=== PATIENT | female | born 1970 | race Caucasian/White ===

== ENCOUNTER 2021-07-16 08:04 | Emergency (ER) | payer SELFPAY ==
[2021-07-16 09:20] LABS: #Eosinphils 0.1 10x3/uL (0.0-0.5); #Monocytes 0.5 10x3/uL (0.0-1.1); #Neutrophils 4.1 10x3/uL (1.5-8.4); %Basophils 0.7 % (0.0-2.0); %Eosinophils 0.9 % (0.0-6.0); %Lymphocytes 18.2 % (18.0-47.0); %Monocytes 9.1 % (0.0-10.0); %Neutrophils 70.8 % (40.0-75.0); Hemoglobin 15.5 g/dL (12.0-15.5); Mean Corpuscular Hemoglobin 32.2 pg (27.0-33.0); Mean Corpuscular Volume 94.8 fl (81.6-98.3); Mean Platelet Volume 9.4 fl (7.4-10.4); Platelet Count 265 10x3/uL (150-450); RBC Distribution Width 13.2 % (11.5-14.5); Red Blood Cell (RBC) Count 4.81 10x6/uL (3.90-5.03); White Blood Cell (WBC) Count 5.8 10x3/uL (3.5-10.5)
[2021-07-16 09:27] LABS: Bilirubin Neg (Negative); Blood, Urine Negative (Negative); Clarity Clear (Clear); Glucose, Urine (Dipstick) Normal (Negative); Ketone, Urine 15 mg/dL (Negative); Leukocyte Negative (Negative); Nitrite Negative (Negative); Protein, Urine (Dipstick) Negative (Neg-Trace); Specific Gravity, Urine 1.015 (1.002-1.036); Urobilinogen Normal mg/dL (Less than 2)
[2021-07-16] MEDS ORDERED: Morphine 4 MG/ML VIAL ONE (09:28)
[2021-07-16] MEDS ORDERED: Ondansetron PF 4 MG/2 ML Vial ONE (09:28)
[2021-07-16] MEDS ORDERED: Lidocaine Viscous Sol 2% 15 ml UD Cup ONE (09:28)
[2021-07-16 09:34] LABS: ALT (SGPT) 29 U/L (8-55); AST (SGOT) 19 U/L (5-34); Albumin 4.9 g/dL (3.5-5.0); Alkaline Phosphatase 55 U/L (40-110); Anion Gap 16 mmol/L (10-20); BUN (Urea Nitrogen) 8 mg/dL (7.0-18.7); Bilirubin, Total 0.7 mg/dL (0.2-1.2); Calc. Creatinine Clearance 0 mL/min (70-130); Calcium 10.2 mg/dL (7.8-10.44); Carbon Dioxide 27 mmol/L (22-29); Chloride 100 mmol/L (98-107); Globulin 3.9 g/dL (2.4-3.5); Glucose 111 mg/dL (70-105); Lipase 9 U/L (8-78); Potassium 3.5 mmol/L (3.5-5.1); Protein, Total 8.8 g/dL (6.0-8.3); Sodium 139 mmol/L (136-145)
[2021-07-16] MEDS ORDERED: Midazolam HCl 2 mg/2 ml Vial ONE (11:52)
== END 2021-07-16 13:43 | disposition home or self-care (01) ==
LOC: CSHERS 08:04
DX: K59.00 Constipation, unspecified (principal)
CPT/HCPCS: 74022; 80053; 81003; 83690; 85025; 96374; 96375; J2250; J2270; J2405